=== PATIENT | female | born 1965 | race Hispanic/Latino ===

== ENCOUNTER 2022-08-27 23:25 | Emergency (ER) | payer SELFPAY ==
[2022-08-27 23:53] VITALS: BP 166/90
== END 2022-08-28 04:43 | disposition left against medical advice (07) ==
LOC: ED 23:25
DX: R42 Dizziness and giddiness (principal); R04.0 Epistaxis; Z53.21 Procedure and treatment not carried out due to patient leaving prior to being seen by health care provider